=== PATIENT | female | born 1995 | race Caucasian/White ===

== ENCOUNTER 2017-02-07 14:54 | Emergency (ER) | payer BC ==
--- NOTE | 2017-02-07 15:56 | EDPHY ---
H & P Time Seen by Provider: 02/07/17 15:46 HPI/ROS: CHIEF COMPLAINT: Right arm pain HISTORY OF PRESENT ILLNESS: Patient is a 21-year-old female who presents to the emergency department with right medial arm pain. The patient states she works out daily. A few days ago she had a "arm day" and felt the discomfort was secondary to work out. Today she noticed some mild redness on the medial aspect of her upper arm. No arm swelling or numbness. She states she went to urgent care and they sent to the emergency department for further evaluation. She has had no chest pain or shortness of breath. No leg pain or swelling. No previous clots. Patient is taking contraception. No family history of clots. REVIEW OF SYSTEMS: My complete review of systems is negative except as mentioned in the HPI. Past Medical/Surgical History: Negative Past surgical history: Negative Social history: The patient does not smoke. Smoking Status: Never smoked Physical Exam: Vitals noted. GENERAL: Well-appearing, in no acute distress, alert. HEENT: Eyes normal to inspection, normal. RESPIRATORY: Clear to auscultation bilaterally, no rales, rhonchi or wheezing. CVS: Regular rate and rhythm, no rubs, murmurs, or gallops. ABDOMEN: Soft, nontender. SKIN: Normal color, no rash, warm, dry. No pallor. EXTREMITIES: Her right upper extremity appears normal. There is no medial redness or notable erythema. No cords. No swelling. Neurovascular intact distally. No lymphadenopathy NEURO/PSYCH: Alert and oriented, normal mood and affect, normal motor sensory exam. Constitutional: Initial Vital Signs Temperature (C) 36.6 C 02/07/17 15:01 Heart Rate 92 02/07/17 15:01 Respiratory Rate 17 02/07/17 15:01 Blood Pressure 130/79 H 02/07/17 15:01 O2 Sat (%) 97 02/07/17 15:01 O2 Delivery Mode Room Air Allergies/Adverse Reactions: No Known Allergies Allergy (Unverified 02/07/17 15:00) Home Medications: Medication Instructions Recorded Loestrin 21 1-20 Tablet 02/07/17 Medical Decision Making - Diagnostics Imaging Results: Imaging Impressions Extremity Venous Study 02/07/17 16:02 Impression: No evidence of intraluminal thrombus venous system right upper extremity. Findings discussed with Farrah Eastman M.D. at 18:38 hour, 02/07/2017. ED Course/Re-evaluation: In the emergency department I discussed possible etiologies with the patient. Answered all her questions. An ultrasound of the right upper extremity was ordered. I rechecked with the patient on numerous occasions while here. I rechecked on obtaining the ultrasound as there was some delay Right upper extremity ultrasound: No acute disease noted. Please refer the dictated report by the radiologist. I discussed the results with the patient. I answered all her questions. She is given warnings prior to leaving. She will follow up with work. Differential Diagnosis: My differential includes but is not limited to DVT, arterial occlusion, cellulitis, abscess, muscle strain, sprain Departure - Departure Disposition: Home, Routine, Self-Care Clinical Impression: Pain in right upper arm Condition: Good Instructions: Arm Pain (ED) Additional Instructions: Return with increasing redness, swelling, pain, fever, shortness of breath, chest pain or any other concerns. Your ultrasound was normal. Referrals: [facility] [Other] - 2-3 days, call for appt. [facility] [Clinic] - As per Instructions
[2017-02-07 19:10] VITALS: BP 95/67; PULSE 96; RESP 18; TEMP 98.8; O2SAT 98
== END 2017-02-07 19:11 | disposition home or self-care (01) ==
DX: M79.621 Pain in right upper arm (principal)